=== PATIENT | male | born 1975 | race Caucasian/White ===

== ENCOUNTER 2022-11-09 17:29 | Observation (INO) | payer BC, SELFPAY ==
[2022-11-09] VITALS (7 sets, daily range): BP systolic 148–167; BP diastolic 90–136; PULSE 99–147; RESP 18–20; TEMP 36.5; O2SAT 99–100
--- NOTE | ~2022-11-09 | XR_ITS ---
EXAMINATION: XR chest 2V Exam Date/Time: 11/09/2022 18:10 AUTO APPRAISER HISTORY: ELEVATED HEART RATE Comparison: None available. RESULT: Lines, tubes, and devices: None. Lungs and pleura: Clear. Cardiomediastinal silhouette: Unremarkable. Other: No acute osseous or upper abdominal finding. IMPRESSION: No acute cardiopulmonary process. Reviewed, dictated and finalized at location K. APPRAISER
--- NOTE | 2022-11-09 17:34 | ECG_ITS ---
Measurements Intervals [place] Rate: 127 P: [place]: 0 QRS: 42 QRSD: 85 T: 59 QT: 275 QTc: 400 Interpretive Statements ATRIAL FLUTTER/TACHYCARDIA WITH RAPID VENTRICULAR RESPONSE MARKED ST DEPRESSION, CONSIDER SUBENDOCARDIAL INJURY [0.2+ mV ST DEPRESSION] NO PREVIOUS ECG AVAILABLE FOR COMPARISON Electronically Signed On 11-10-2022 14:43:57 CHIEF EMBALMER by Bro Johns M.D.
[2022-11-09 18:22] LABS: Basophils Absolute Auto 0.1 K/mm3 (0.0-0.1); Basophils Percent Auto 0.5 % (0.2-1.2); Eosinophils Percent Auto 0.2 % (0-4.4); Hematocrit 45.7 % (42.0-52.0); Hemoglobin 15.2 g/dL (14.0-18.0); Immature Granulocyte Absolute 0.03 K/mm3 (0.00-0.031); Immature Granulocyte Percent A 0.3 % (0-0.5); Lymphocytes Absolute Auto 0.95 K/mm3 (0.9-3.2); Lymphocytes Percent Auto 10.3 % (18.3-44.2); Mean Corpuscular HGB Conc 33.3 g/dl (32-36); Mean Corpuscular Hemoglobin 33.5 pg (26-34); Mean Corpuscular Volume 100.7 fl (80-100); Mean Platelet Volume 9.9 fl (7.4-10.4); Monocytes Absolute Auto 0.7 K/mm3 (0.1-0.6); Monocytes Percent Auto 7.6 % (2.6-8.5); Neutrophils Absolute Auto 7.4 K/mm3 (1.3-6.7); Neutrophils Percent Auto 81.1 % (45.5-73.1); Platelet Count Result 247 k/mm3 (150-375); Red Blood Count 4.54 M/mm3 (4.6-6.20); Red Cell Distribution Width 12.7 % (11.5-14.5); White Blood Count 9.2 K/mm3 (4.5-10.0)
[2022-11-09 18:25] LABS: Alanine Aminotransferase 89 U/L (6-50); Albumin Level 5.2 g/dL (3.5-5.1); Alkaline Phosphatase 95 U/L (38-126); Anion Gap 16 mmol/L (8-16); Aspartate Amino Transferase 126 U/L (17-59); Blood Urea Nitrogen 11 mg/dL (9-20); Carbon Dioxide 25 mmol/L (22-30); Chloride 93 mmol/L (98-107); Estimated Glomerular Filt Rate > 60; Glucose 103 mg/dL (65-110); Lipase 151 U/L (23-300); Potassium 4.8 mmol/L (3.4-5.0); Sodium 134 mmol/L (137-145)
[2022-11-09 18:26] LABS: Partial Thromboplastin Time 27.6 SECONDS (22.3-36.8)
[2022-11-09 18:37] LABS: Troponin I < 0.012 ng/mL (0.000-0.034)
[2022-11-09] MEDS: SODIUM CHLORIDE 0.9% IV 1,000 ML 999 ML IV CONT (18:55)
--- NOTE | 2022-11-09 19:03 | ED.ARRPALP ---
HPI - Arrhythmia/Palpitations General Chief Complaint: Arrhythmia/Palpitations Stated Complaint: ELEVATED HEART RATE Time Seen by Provider: 11/09/22 18:41 History of Present Illness HPI narrative: 47-year-old male history of depression presents to the emergency room for evaluation of fast, irregular heart rate that started around 1530 this afternoon. Associated with palpitations, dizziness and nausea. States that he drank significantly last night. Has a history of similar symptoms 8 years ago, states that this then resolved after roommates of breath. Does have a history of snoring, however is lost weight and no longer uses a CPAP machine. Related Data Allergies Allergy/AdvReac Type Severity Reaction Status Date / Time diclofenac AdvReac Rash Verified 11/09/22 19:05 Review of Systems Review of Systems: CONSTITUTIONAL: Denies fever, chills, or sweats. EYES: Denies visual changes, redness, or discharge. ENT: Denies rhinorrhea, congestion, sore throat, or otalgia. CARDIOVASCULAR: Reports palpitations, tachycardia RESPIRATORY: Denies cough or dyspnea. GASTROINTESTINAL: Denies abdominal pain, nausea, vomiting, or diarrhea. GENITOURINARY: Denies dysuria or hematuria. SKIN: Denies rash or itching. MUSCULOSKELETAL: Denies back pain, joint pain, or myalgia. NEUROLOGIC: Denies headache, numbness, dizziness, or weakness. PSYCHIATRIC: Denies anxiety or depression. Exam Narrative: GENERAL: Well-appearing, well-nourished, no physical limitations, and in no acute distress. HEAD: Normocephalic, atraumatic. EYES: Conjunctivae normal, PERRLA and EOMI. CHEST: Clear to auscultation. No respiratory distress. No wheezes rales or rhonchi. HEART: Irregular rate irregular rhythm. No murmur heard. Normal peripheral pulses. ABDOMEN: Soft, nontender, nondistended, normal active bowel sounds. EXTREMITIES: Normal range of motion. No edema. No clubbing or cyanosis SKIN: Warm, dry, no rash. No noted wounds NEURO: No focal deficits. Alert and oriented x3. MAEW. CN's II-XI intact bilaterally, normal gait PSYCH: Cooperative. Normal mood and affect. Course Vital Signs Vital signs: Vital Signs Temperature 36.5 C 11/09/22 18:08 Pulse Rate 99 11/09/22 18:08 Respiratory Rate 20 11/09/22 18:08 Blood Pressure 150/94 H 11/09/22 18:08 Pulse Oximetry 99 11/09/22 18:08 Temperature 36.5 C 11/09/22 18:24 Pulse Rate 142 H 11/09/22 20:02 Respiratory Rate 20 11/09/22 18:24 Blood Pressure 159/107 H 11/09/22 20:02 Pulse Oximetry 99 11/09/22 18:24 Oxygen Delivery Room Air 11/09/22 18:24 MDM - Arrhythmia/Palpitations Lab Data 11/09/22 17:59 11/09/22 17:59 Labs: Lab Results 11/09/22 11/09/22 11/09/22 Range/Units 17:59 17:59 17:59 WBC 9.2 (4.5-10.0) K/mm3 RBC 4.54 L (4.6-6.20) M/mm3 Hgb 15.2 (14.0-18.0) g/dL Hct 45.7 (42.0-52.0) % MCV 100.7 H (80-100) fl MCH 33.5 (26-34) pg MCHC 33.3 (32-36) g/dl RDW 12.7 (11.5-14.5) % Plt Count 247 (150-375) k/mm3 MPV 9.9 (7.4-10.4) fl Immature Gran % (Auto) 0.3 (0-0.5) % Neut % (Auto) 81.1 H (45.5-73.1) % Lymph % (Auto) 10.3 L (18.3-44.2) % [place] % (Auto) 7.6 (2.6-8.5) % Eos % (Auto) 0.2 (0-4.4) % Baso % (Auto) 0.5 (0.2-1.2) % Lymph # (Auto) 0.95 (0.9-3.2) K/mm3 [place] # (Auto) 0.7 H (0.1-0.6) K/mm3 Eos # (Auto) 0.0 (0-0.3) K/mm3 Baso # (Auto) 0.1 (0.0-0.1) K/mm3 Abs Immat Gran (auto) 0.03 (0.00-0.031) K/mm3 Absolute Neuts (auto) 7.4 H (1.3-6.7) K/mm3 Absolute Nucleated RBC 0.0 (0.0-0.012) K/mm3 Nucleated RBC % 0.0 (0.0-0.2) % PT 13.0 (11.1-14.7) Seconds INR 1.0 APTT 27.6 (22.3-36.8) SECONDS Sodium 134 L (137-145) mmol/L Potassium 4.8 (3.4-5.0) mmol/L Chloride 93 L (98-107) mmol/L Carbon Dioxide 25 (22-30) mmol/L Anion Gap 16 (8-16) mmol/L BUN 11 (9-20) mg/dL Creatinine 0.60 L (0.7-1.3
[2022-11-09] MEDS: dilTIAZem HCl INJ 25 MG/5 ML VIAL 10 MG IV PUSH (19:04)
[2022-11-09] MEDS: ONDANSETRON INJ 4 MG/2 ML VIAL IV PUSH (19:13)
--- NOTE | 2022-11-09 19:16 | ECG_ITS ---
Measurements Intervals [place] Rate: 141 P: [place]: 0 QRS: 28 QRSD: 78 T: 3 QT: 263 QTc: 403 Interpretive Statements ATRIAL FLUTTER/TACHYCARDIA WITH RAPID VENTRICULAR RESPONSE ST DEPRESSION, CONSIDER SUBENDOCARDIAL INJURY [0.1+ mV ST DEPRESSION] COMPARED TO ECG 11/09/2022 17:54:15 NO SIGNIFICANT CHANGES Electronically Signed On 11-10-2022 14:45:35 STORE TEAM MEMBER by Bro Johns M.D.
[2022-11-09] MEDS: dilTIAZem 100 MG/100 ML 100 MG/100 ML BAG IV CONT (19:39)
--- NOTE | 2022-11-09 20:00 | PM.IMHP ---
H&P: HPI History of Present Illness Date/Time: 11/09/22 20:00 Chief Complaint: Chest discomfort Narrative: This is a 47-year-old male with past medical history significant for alcohol dependence patient drinks 4-5 drinks a day has been drinking more than usual for the holidays started having fluttery sensation of his chest with some lightheadedness no chest pain some shortness of breath with exertion no ankle swelling no leg swelling, no syncope, no near syncope. Patient noted on his Apple watch that he had tachycardia with heart rate into the 150's. Preliminary workup in the emergency room was significant for a chest x-ray was reported as: RESULT: Lines, tubes, and devices:? None. Lungs and pleura:? Clear. Cardiomediastinal silhouette:? Unremarkable. Other:? No acute osseous or upper abdominal finding. ? IMPRESSION: No acute cardiopulmonary process. ECG was reported as: ATRIAL FLUTTER/TACHYCARDIA WITH RAPID VENTRICULAR RESPONSE ST DEPRESSION, CONSIDER SUBENDOCARDIAL INJURY [0.1+ mV ST DEPRESSION] COMPARED TO ECG 11/09/2022 17:54:15 NO SIGNIFICANT CHANGES Review of Systems Review of Systems: For palpitations, fluttery feeling in his chest, shortness of breath, lightheadedness, nausea. Constitutional: Constitutional: Denies chills, Denies fever(s), Denies malaise and Denies weakness Eyes: Eyes: Denies change in vision ENT: Denies dysphagia, Denies vertigo and Denies dizziness Cardiovascular: Cardiovascular: Denies chest pain, Denies pedal edema, Reports irregular heart rhythm, Denies leg edema, Reports lightheadedness, Denies radiating jaw, neck or arm pain, Reports palpitations, Reports dyspnea and Reports dyspnea on exertion Respiratory: Respiratory: Denies chest congestion, Denies cough, Denies pain on inspiration and Denies wheezing Gastrointestinal: Gastrointestinal: Denies abdominal pain, Denies dyspepsia, Denies heartburn, Denies nausea and Denies vomiting Genitourinary: Genitourinary: Denies dysuria Musculoskeletal: Musculoskeletal: Denies back pain, Denies myalgias, Denies joint swelling, Denies limited range of motion, Denies muscle weakness and Denies neck pain Integumentary/Breasts: Skin/Breast: Denies rash Neurologic: Denies vertigo, Denies dizziness, Denies syncope, Denies focal weakness, Denies Sensory deficit (Neuro), Denies tingling and Reports tremor(s) Psychiatric: Psychiatric: Reports no additional psychiatric complaints and Reports as per HPI Endocrine: Endocrine: Denies cold intolerance, Denies flushing, Denies heat intolerance, Denies polyphagia, Denies polydipsia and Denies palpitations Hematologic/Lymphatic: Hematologic/Lymphatic: Reports no additional hematologic/lymphatic complaints and Reports as per HPI Allergic/Immunologic: Allergic/Immunologic: Reports no additional allergic/immunologic complaints and Reports as per HPI PMF Family History Family History (Updated 11/10/22 @ 01:26 by Crhisti Coleman, VIRGILIO) Father Cerebrovascular accident Mother Thyroid cancer Social History Social History Smoking status: Never smoker Alcohol intake: current Drinks per week: 21 Substance use type: does not use Lack of Transportation: No Lack of Food: Never True Current Housing: I Have Housing Concerned About Future Housing: No Difficulty Paying Gas/Electric Bills: No Difficulty Paying for Meds: No Currently Unemployed: No Education: Master's Degree or Higher Difficulty w/ Childcare or Family Care: No Spiritual care concerns: No Meds Home Medications and Allergies Home Medications Medication Instructions Recorded Confirmed Type sertraline 50 mg tablet 50 mg PO DAILY 11/10/22 11/10/22 History Allergies Allergy/AdvReac Type Severity Reaction Status Date / Time diclofenac AdvReac Rash Verified 11/09/22 19:05 Vital Signs Vital Signs - 24 hr 11/09/22 18:08 11/09/22 18:24 11/09/22
[2022-11-09 20:30] LABS: Influenza A QL RT-PCR Negative (Negative); Influenza B QL RT-PCR Negative (Negative); RSV RNA, RT-PCR Negative (Negative); SARS-CoV-2 RNA PCR Negative
[2022-11-09] MEDS: ENOXAPARIN 80 MG/0.8 ML SYRINGE 70 MG SUB-Q (20:30)
[2022-11-09] MEDS: LORazepam INJ (*CRX) 2 MG/ML VIAL 1 MG IV PUSH (20:30)
[2022-11-09 21:17] LABS: Troponin I < 0.012 ng/mL (0.000-0.034)
[2022-11-09] MEDS: dilTIAZem HCl INJ 25 MG/5 ML VIAL 20 MG IV PUSH (21:28)
[2022-11-09] MEDS: chlordiazePOXIDE (*CRX) 25 MG CAPSULE 50 MG PO (23:17)
[2022-11-09] MEDS: dilTIAZem 100 MG/100 ML 100 MG/100 ML BAG 15 MG IV CONT (23:18)
[2022-11-10] VITALS (16 sets, daily range): BP systolic 115–135; BP diastolic 74–97; PULSE 52–145; RESP 11–29; TEMP 36.5–37; O2SAT 97–99
--- NOTE | 2022-11-10 | ECHO_ITS ---
Patient Info Name: Sandip Scherer Age: 47 years : 1975 Gender: Male Ht: 74 in Wt: 156 lbs BSA: 1.91 m2 HR: 77 bpm BP: 117 / 77 mmHg Heart Rhythm: Sinus Rhythm Technical Quality: Good Exam Date: 11/10/2022 11:03 AM Exam Location: [facility] Patient Status: Inpatient Admit Date: 11/09/2022 Staff Ordering Physician: Wilma Hughes MD Paper Twister Tender: Aspen Dominguez RCS Attending Provider: Foster Gonzales MD Referring Physician: Saul MOORE; Exam Type: CA echo doppler color flow Study Info Indications - afib Complete two-dimensional, color flow and Doppler transthoracic echocardiogram is performed. Summary 1. Complete two-dimensional, color flow and Doppler transthoracic echocardiogram is performed. 2. Left ventricular chamber dimension is normal. 3. Left ventricular systolic function is normal, estimated at 65-70%. 4. There is no increased left ventricular wall thickness. 5. The left ventricular diastolic function is normal. 6. Right atrial chamber dimension is mildly enlarged. 7. There is no aortic valve stenosis. 8. There is trace mitral valve regurgitation. 9. There is trace tricuspid valve regurgitation. 10. No pulmonary hypertension, estimated pulmonary arterial systolic pressure is 27 mmHg. Left Ventricle Left ventricular chamber dimension is normal. Left ventricular systolic function is normal, estimated at 65-70%. There is no increased left ventricular wall thickness. The left ventricular diastolic function is normal. Right Ventricle Right ventricular chamber dimension is normal. Right ventricular systolic function is normal. Left Atria Left atrial chamber dimension is normal. Right Atria Right atrial chamber dimension is mildly enlarged. Aortic Valve The aortic valve is trileaflet. There is no aortic valve stenosis. There is no aortic valve regurgitation. Pulmonic Valve The pulmonic valve is normal. There is trace pulmonic regurgitation. Mitral Valve The mitral valve has normal leaflets. There is trace mitral valve regurgitation. Tricuspid Valve The tricuspid valve leaflets are normal. There is trace tricuspid valve regurgitation. No pulmonary hypertension, estimated pulmonary arterial systolic pressure is 27 mmHg. Pericardium/Pleural The pericardium appears normal. There is no pericardial effusion. Inferior Vena Cava Normal inferior vena cava with >50% collapse upon inspiration consistent with normal right atrial pressure, 5 mmHg. Aorta The aortic root size at the sinus of Valsalva is normal. Left Ventricular Outflow Tract Name Value Normal LVOT 2D LVOT Diameter 2.0 cm LVOT Doppler LVOT Peak Gradient 7 mmHg LVOT Mean Gradient 4 mmHg LVOT VTI 25 cm LVOT VTI/AV VTI Ratio 0.9 LVOT Stroke Volume 83 ml LVOT CO 17.9 l/min LVOT CI 9.4 l/min/m2 Pulmonic Valve
[2022-11-10 00:06] LABS: Troponin I < 0.012 ng/mL (0.000-0.034)
--- NOTE | 2022-11-10 00:59 | ADMGEN ---
This patient, Sandip Scherer, was admitted to Intensive Care Unit-11 at 2326. Patient/family oriented to hospital policies and general routines including ID bracelet, bed and alarms, visiting hours, pain management, procedures, bathroom and other care routines, personal items, smoking policy, room service/diet, and visiting hours. Information on how to activate the Rapid Response Team has been discussed. Patient/Family are encouraged to report perceived risks to care and to ask questions if they do not understand what they are told or what they should do.
[2022-11-10] MEDS: AMIODARONE 150 MG/D5W 100 ML 150 MG/100 ML BAG 600 MG IV CONT (01:45)
[2022-11-10] MEDS: AMIODARONE 360 MG/D5W 200 ML 360 MG/200 ML BAG 33.33 MG IV CONT (01:46)
[2022-11-10 04:39] LABS: Basophils Percent Auto 0.5 % (0.2-1.2); Eosinophils Absolute Auto 0.1 K/mm3 (0-0.3); Hematocrit 42.4 % (42.0-52.0); Hemoglobin 14.6 g/dL (14.0-18.0); Immature Granulocyte Absolute 0.02 K/mm3 (0.00-0.031); Immature Granulocyte Percent A 0.3 % (0-0.5); Lymphocytes Percent Auto 24.6 % (18.3-44.2); Mean Corpuscular HGB Conc 34.4 g/dl (32-36); Mean Corpuscular Hemoglobin 33.9 pg (26-34); Mean Corpuscular Volume 98.4 fl (80-100); Mean Platelet Volume 9.5 fl (7.4-10.4); Monocytes Absolute Auto 0.9 K/mm3 (0.1-0.6); Monocytes Percent Auto 12.8 % (2.6-8.5); Neutrophils Absolute Auto 4.5 K/mm3 (1.3-6.7); Neutrophils Percent Auto 60.8 % (45.5-73.1); Platelet Count Result 222 k/mm3 (150-375); Red Blood Count 4.31 M/mm3 (4.6-6.20); Red Cell Distribution Width 12.2 % (11.5-14.5); White Blood Count 7.3 K/mm3 (4.5-10.0)
[2022-11-10 04:49] LABS: INR 1.2; Prothrombin Time 14.2 Seconds (11.1-14.7)
[2022-11-10 05:19] LABS: Anion Gap 11 mmol/L (8-16); Blood Urea Nitrogen 8 mg/dL (9-20); Calcium 8.4 mg/dL (8.4-10.2); Carbon Dioxide 28 mmol/L (22-30); Chloride 95 mmol/L (98-107); Estimated CRCL calculation 128 ml/min; Estimated Glomerular Filt Rate > 60; Glucose 90 mg/dL (65-110); Potassium 3.6 mmol/L (3.4-5.0); Sodium 134 mmol/L (137-145)
[2022-11-10] MEDS: AMIODARONE 360 MG/D5W 200 ML 360 MG/200 ML BAG 16.67 MG IV CONT (06:55)
[2022-11-10] MEDS: chlordiazePOXIDE (*CRX) 25 MG CAPSULE 50 MG PO ×2 (06:55→17:31)
--- NOTE | 2022-11-10 08:52 | ECG_ITS ---
Measurements Intervals [place] Rate: 73 P: 13 RI: 130 QRS: 33 QRSD: 88 T: 35 QT: 378 QTc: 418 Interpretive Statements SINUS RHYTHM COMPARED TO ECG 11/09/2022 19:24:21 SINUS RHYTHM NOW PRESENT Electronically Signed On 11-10-2022 14:53:37 AUTOMATED EQUIPMENT ENGINEER TECHNICIAN by Bro Johns M.D.
[2022-11-10] MEDS: PANTOPRAZOLE SODIUM IV 40 MG VIAL IV PUSH (09:16)
[2022-11-10] MEDS: POTASSIUM CHLORIDE 20 MEQ TABLET 40 MEQ PO (09:16)
[2022-11-10] MEDS: THIAMINE HCL 200 MG/2 ML VIAL 100 MG IV PUSH (09:16)
[2022-11-10] MEDS: FOLIC ACID 1 MG TABLET PO (09:16)
[2022-11-10] MEDS: SERTRALINE HCL 50 MG TABLET PO (09:16)
[2022-11-10] MEDS: ENOXAPARIN 80 MG/0.8 ML SYRINGE 70 MG SUB-Q (09:36)
--- NOTE | 2022-11-10 10:31 | PM.CNCAR ---
Assessment and Plan Assessment and plan (1) Atrial fibrillation and flutter: Code(s): I48.91 - Unspecified atrial fibrillation; I48.92 - Unspecified atrial flutter Status: Acute (2) Alcohol dependence: Code(s): F10.20 - Alcohol dependence, uncomplicated Status: Acute Plan Since patient is now in sinus rhythm, will stop Amiodarone. Start Metoprolol. Will check TSH. Will obtain echo to rule out underlying structural heart disease. Recommended outpatient sleep study to evaluate for DONALD. Discussed the correlation between alcohol use and atrial fibrillation; recommended alcohol cessation. Advised patient to establish care with a long term care pharmacist back home in [place]. History of Present Illness History of Present Illness Consult date/time: 11/10/22 10:31 Requesting physician: Matthew Camarena APRN Consult reason: atrial fibrillation Reason For Visit: New Onset of A Fib/ A Flutter Narrative: We are consulted for atrial flutter/fibrillation. This is a 47-year-old male with a history of depression and alcohol use who presented with palpitations and high heart rate according to his Apple Watch. Patient lives in [place] but is in town visiting for the holidays. Patient is without chest pain, shortness of breath, lightheadedness/dizziness, syncope. EKG on admission showed atrial flutter. Telemetry appears to have some atrial fibrillation as well. Patient was started on IV Amiodarone drip. He converted to sinus rhythm this morning. Review of Systems Review of Systems: 12-point ROS obtained. Negative, unless stated in HPI. [facility] Family History Family History Father Cerebrovascular accident Mother Thyroid cancer Social History Social History Smoking status: Never smoker Alcohol intake: current Drinks per week: 21 Substance use type: does not use Lack of Transportation: No Lack of Food: Never True Current Housing: I Have Housing Concerned About Future Housing: No Difficulty Paying Gas/Electric Bills: No Difficulty Paying for Meds: No Currently Unemployed: No Education: Master's Degree or Higher Difficulty w/ Childcare or Family Care: No Spiritual care concerns: No Meds Home Medications and Allergies Home Medications Medication Instructions Recorded Confirmed Type sertraline 50 mg tablet 50 mg PO DAILY 11/10/22 11/10/22 History Allergies Allergy/AdvReac Type Severity Reaction Status Date / Time diclofenac AdvReac Rash Verified 11/09/22 19:05 Vital Signs Vital Signs - 24 hr 11/09/22 18:08 11/09/22 18:24 11/09/22 19:39 Temperature 36.5 C 36.5 C Pulse Rate 99 144 H 147 H Pulse Rate [Bilateral Radial] Respiratory Rate 20 20 Blood Pressure 150/94 H 150/94 H 162/105 H Pulse Oximetry 99 99 Oxygen Delivery Room Air 11/09/22 20:02 11/09/22 20:22 11/09/22 21:22 Temperature Pulse Rate 142 H 140 H 146 H Pulse Rate [Bilateral Radial] Respiratory Rate 18 Blood Pressure 159/107 H 167/106 H 150/136 H Pulse Oximetry 100 Oxygen Delivery 11/09/22 23:18 11/10/22 01:45 11/10/22 01:46 Temperature Pulse Rate 147 H 145 H 145 H Pulse Rate [Bilateral Radial] Respiratory Rate Blood Pressure 148/90 H 124/88 124/88 Pulse Oximetry Oxygen Delivery 11/10/22 00:00 11/10/22 00:00 11/10/22 00:00 Temperature 37.0 C Pulse Rate 145 H 145 H 145 H Pulse Rate [Bilateral Radial] Respiratory Rate 21 H Blood Pressure 135/97 H Pulse Oximetry 97 Oxygen Delivery Room Air 11/10/22 02:00 11/10/22 04:00 11/10/22 04:00 Temperature 36.9 C Pulse Rate 140 H 104 H 104 H Pulse Rate [Bilateral Radial] Respiratory Rate 20 Blood Pressure 119/74 Pulse Oximetry 97 97 Oxygen Delivery Room Air 11/10/22 04:00 11/10/22 04:00 11/10/22 05:25 Temperature Pulse Rate 104 H 72 Pulse Rate [Bilateral Radial] 104 H
[2022-11-10] MEDS: METOPROLOL TARTRATE 25 MG TABLET PO ×2 (11:15→21:21)
[2022-11-10 11:37] LABS: Glucose Point of Care 91 mg/dl (65-105)
--- NOTE | 2022-11-10 13:20 | PM.IMPN ---
Progress Note: A&P Assessment and Plan (1) Atrial fibrillation and flutter: Code(s): I48.91 - Unspecified atrial fibrillation; I48.92 - Unspecified atrial flutter Status: Acute Assessment and Plan: Patient presented with chest pain, shortness of breath, lightheadedness, palpitations, was found to have AFib RVR in the ER. Initially started on Cardizem and switched to amiodarone infusion. -patient converted to sinus rhythm, -Discontinue Amiodarone and start metoprolol p.o. -TSH levels within normal limits -appreciate cardiology evaluation and recommendation -echo has been ordered and pending -continue therapeutic Lovenox (2) Alcohol dependence: Code(s): F10.20 - Alcohol dependence, uncomplicated Status: Acute Assessment and Plan: Patient has significant alcohol dependence, to watch for alcohol withdrawal -continue folic acid, thiamine -patient on Librium -continue CIWA protocol -counseled for alcohol cessation (3) Depression: Code(s): F32.A - Depression, unspecified Status: Acute Assessment and Plan: Continue sertraline Plan DVT prophylaxis: Therapeutic Lovenox Stress ulcer prophylaxis: Protonix Nutrition: Heart healthy diet Code Status: Full code Due to a high probability of clinically significant, life threatening deterioration, the patient required my highest level of preparedness to intervene emergently and I personally spent this critical care time directly and personally managing the patient. This critical care time included obtaining a history; examining the patient; pulse oximetry; ordering and review of studies; arranging urgent treatment with development of a management plan; evaluation of patient's response to treatment; frequent reassessment; and discussions with other providers. It was exclusive of separately billable procedures and treating other patients and teaching time. Please see Assessment and Plan section and the rest of the note for further information on patient assessment and treatment This dictation may have been done utilizing a voice recognition system. Attempts have been made to correct errors. However, there may be uncorrected grammatical, spelling, and recognitions errors present. Subjective Date/time seen: 11/10/22 13:20 Interval history: Chief complaint: Chest discomfort, lightheadedness, shortness of breath, palpitations, alcohol abuse. In the ER he was found to have AFib RVR, chest x-ray was negative 11/10/2022: Patient seen and examined for hospitalist group Mike patient with a flat affect, denies any chest pain at this time, on amiodarone infusion, rate controlled, converted to sinus rhythm. Denies any tobacco use or illicit drug abuse, he does drink alcohol, states 4-5 drinks on a regular basis and more than usual for the holidays. He is from [place] and was visiting the area for holidays. Patient is hemodynamically stable, adequate O2 sats on room air Review of Systems Review of Systems: All systems reviewed & are unremarkable except as noted in HPI and below Exam Narrative: General: Pleasant gentleman in no acute distress HEENT:? Pupils are equal and reactive, sclera is clear, moist oral mucosa Neck:? Supple Respiratory:? Date to auscultation bilaterally, no wheezing, adequate air entry Cardiac:? S1-S2 is normal, regular rate and rhythm Abdomen:? Soft, nontender, nondistended, normoactive bowel sounds Extremities:? No edema, palpable pedal pulses Neuro:? Patient is awake, alert, oriented, nonfocal, answers to questions appropriately Skin:? Warm and dry Psych:? Flat affect Objective Data Vital Signs Vital Signs: Vital Signs - 24 hr 11/09/22 18:08 11/09/22 18:24 11/09/22 19:39 Temperature 97.7 F 97.7 F Pulse Rate 99 144 H 147 H Pulse Rate [Bilateral Radial] Respiratory Rate 20 20 Blood Pressure 150/94 H 150/94 H 162/105 H Pulse Oximetry 99 99 Oxygen Delivery Room Air 11/09/22 20:02
[2022-11-10 18:56] LABS: Glucose Point of Care 116 mg/dl (65-105)
[2022-11-11] VITALS: BP 118/85; PULSE 49; RESP 13; O2SAT 98
[2022-11-11] MEDS: chlordiazePOXIDE (*CRX) 25 MG CAPSULE 50 MG PO ×2 (00:19→06:58)
[2022-11-11 04:00] VITALS: BP 114/81; PULSE 46; RESP 18; TEMP 36.6; O2SAT 99
[2022-11-11 07:53] VITALS: TEMP 36.2
[2022-11-11 08:00] VITALS: BP 115/90; PULSE 61; PULSE 73; RESP 17
[2022-11-11 08:36] VITALS: PULSE 75
[2022-11-11] MEDS: METOPROLOL TARTRATE 25 MG TABLET PO (08:36)
[2022-11-11] MEDS: SERTRALINE HCL 50 MG TABLET PO (08:37)
[2022-11-11] MEDS: FOLIC ACID 1 MG TABLET PO (08:37)
[2022-11-11] MEDS: THIAMINE HCL 200 MG/2 ML VIAL 100 MG IV PUSH (08:37)
[2022-11-11] MEDS: PANTOPRAZOLE SODIUM IV 40 MG VIAL IV PUSH (08:37)
--- NOTE | 2022-11-11 09:57 | PM.PNCARD ---
Progress Note: A&P Assessment and Plan (1) Atrial fibrillation and flutter: Code(s): I48.91 - Unspecified atrial fibrillation; I48.92 - Unspecified atrial flutter Status: Acute (2) Alcohol dependence: Code(s): F10.20 - Alcohol dependence, uncomplicated Status: Acute Plan Patient remains in sinus rhythm. Will discharge on Toprol XL 25mg daily. [id number] 0. Anticoagulation not indicated. TSH WNL Echo showed normal LVSF, no significant valvular abnormalities. Mild HERMES. Recommended outpatient sleep study to evaluate for DONALD. Recommend alcohol cessation Advised patient to establish care with a data analyst back home in [place]. OK for discharge from a cardiac standpoint. Subjective Date/time seen: 11/11/22 09:57 Cardiology follow up for atrial fibrillation Remains in sinus rhythm this morning. He has no complaints of any kind. Eager for discharge. He and his had many questions that were all answered to their satisfaction. Review of Systems Review of Systems: All systems reviewed & are unremarkable except as noted in HPI and below Exam Const: General: comfortable and no acute distress HENMT: Mouth: Yes moist mucous membranes Eyes: General: appearance normal, both eyes and all related structures Sclera: sclerae normal Neck: Neck: supple Resp: Effort & Inspection: normal respiratory effort Auscultation: clear to auscultation bilaterally Cardio: Rate: regular rate Rhythm: regular rhythm Heart sounds: no murmurs Skin: General skin exam: normal color Neuro: Speech: normal speech Extrem: General: normal to inspection Psych: Mental Status: mental status grossly normal Affect: normal affect Objective Data Vital Signs Vital Signs: Vital Signs - 24 hr 11/10/22 11:15 11/10/22 12:00 11/10/22 10:00 Temperature 37.0 C Pulse Rate 71 60 72 Respiratory Rate 11 L Blood Pressure 130/88 Pulse Oximetry 99 Oxygen Delivery 11/10/22 12:00 11/10/22 14:00 11/10/22 16:00 Temperature 36.5 C Pulse Rate 62 59 L 54 L Respiratory Rate 14 Blood Pressure 118/86 Pulse Oximetry Oxygen Delivery 11/10/22 16:00 11/10/22 20:00 11/10/22 20:00 Temperature Pulse Rate 59 L 52 L 52 L Respiratory Rate Blood Pressure Pulse Oximetry Oxygen Delivery Room Air 11/10/22 20:00 11/10/22 21:21 11/11/22 00:00 Temperature 36.5 C Pulse Rate 52 L 60 49 L Respiratory Rate 15 Blood Pressure 115/86 Pulse Oximetry 98 Oxygen Delivery 11/11/22 00:00 11/11/22 00:00 11/11/22 04:00 Temperature Pulse Rate 49 L 46 L Respiratory Rate 13 Blood Pressure 118/85 118/85 Pulse Oximetry 98 Oxygen Delivery 11/11/22 04:00 11/11/22 07:53 11/11/22 08:36 Temperature 36.6 C 36.2 C L Pulse Rate 46 L 75 Respiratory Rate 18 Blood Pressure 114/81 Pulse Oximetry 99 Oxygen Delivery 11/11/22 08:00 11/11/22 08:00 11/11/22 08:00 Temperature Pulse Rate 73 61 Respiratory Rate 17 Blood Pressure 115/90 Pulse Oximetry Oxygen Delivery Room Air Intake/Output Intake/Output: Intake & Output 11/08/22 11/09/22 11/10/22 11/11/22 23:59 23:59 23:59 23:59 Intake Total 1100 1750 440 Output Total 1100 500 Balance 1100 650 -60 Meds/Results Medications: Active Medications Generic Name Dose Route Start Last Admin Trade Name Freq PRN Reason Stop Dose Admin Chlordiazepoxide HCl 50 mg 11/10/22 00:00 11/11/22 06:58 Chlordiazepoxide (*Crx) 25 Mg Capsule PO 50 mg Q6HR ABDOULAYE Administration Folic Acid 1 mg 11/10/22 09:00 11/11/22 08:37 Folic Acid 1 Mg Tablet PO 1 mg DAILY ABDOULAYE Administration Lorazepam 2 mg 11/10/22 02:00 Lorazepam Inj (*Crx) 2 Mg/Ml Vial IV PUSH Q4H PRN Withdrawal Metoprolol Tartrate 25 mg 11/10/22 10:35 11/11/22 08:36 Metoprolol Tartrate 25 Mg Tablet PO 25 mg Q12HR ABDOULAYE Administration Ondansetron HCl 4 mg 11/09/22 20:09 Ondansetron Inj
--- NOTE | 2022-11-11 11:32 | PM.DS ---
DS: Admitting Diagnosis Discharge Date 11/11/2022 Admitting Diagnosis chest discomfort DS: Discharge Diagnosis Discharge Diagnosis (1) Atrial fibrillation and flutter: Code(s): I48.91 - Unspecified atrial fibrillation; I48.92 - Unspecified atrial flutter Status: Acute Assessment and Plan: Admit to telemetry Patient received diltiazem emergency room in however heart rate did sustain in the 150's Patient started on amiodarone Patient started on therapeutic Lovenox Echocardiogram in the morning NPO Cardiology consult Supportive care (2) Alcohol dependence: Code(s): F10.20 - Alcohol dependence, uncomplicated Status: Acute Assessment and Plan: CIWA protocol as needed (3) Alcohol withdrawal: Code(s): F10.939 - Alcohol use, unspecified with withdrawal, unspecified Status: Acute Assessment and Plan: CIWA protocol in progress DS: Summary Hospital Course Reason for hospitalization: Chief Complaint: Chest discomfort Narrative: This is a 47-year-old male with past medical history significant for alcohol dependence patient drinks 4-5 drinks a day has been drinking more than usual for the holidays started having fluttery sensation of his chest with some lightheadedness no chest pain some shortness of breath with exertion no ankle swelling no leg swelling, no syncope, no near syncope.? Patient noted on his Apple watch that he had tachycardia with heart rate into the 150's.? Preliminary workup in the emergency room was significant for a chest x-ray was reported as: Hospital Course: patient with history of alcohol abuse had been drinking more than usual for holiday and presented with a tachycardia upon arrival patient was found to be in atrial fibrillation with a flutter, patient was placed on amiodarone drip and converted to sinus rhythm, patient had a cardiac echo showed normal ejection fraction 65% and no abnormal wall movement, patient seen by stonemason supervisor at started the patient on Toprol xl 25 mg q.day and patient does not need anticoagulation as [id number] 0., patient instructed to stop drinking alcohol and to follow up with Cardiology, clinically stable discharge the patient today. Time Spent with Patient Time attestation: Total time spent providing and/or coordinating discharge services: DS: Data Data Completed and Pending Labs on day of discharge: Labs from last 24 hours 11/10/22 11/10/22 18:19 11:34 POC Capillary Glucose 116 H 91 Discharge Plan Discharge Attending physician on discharge: Santhosh Akins Consulting providers: Bro Johns ; Patrick Richardson ; Connor Martinez ; Sree Gerard ; Floresita Murphy Discharging Clinician: Santhosh Akins Patient Disposition: Home, Self-Care Activity: as tolerated Diet: heart healthy Discharge Instructions: Patient is instructed to avoid alcohol until seen by primary care provider. Patient to follow up with primary care provider as soon as possible, and it's recommend to discuss setting up outpatient sleep study for DONALD. Patient is instructed if any symptoms redevelop to go to the nearest ER. Patient is to establish [facility] once he returns home. Patient Instructions: Metoprolol (By mouth), Amiodarone (By injection), A-fib (Atrial Fibrillation) (DC) Stand Alone Forms: General Discharge Information Follow-up/Referrals: PHYSICIAN NOT ON STAFF,NONSTAFF [Primary Care Provider] - Discharge Medications: New metoprolol succinate [Toprol XL] 25 mg tablet extended release 24 hr 25 mg PO DAILY Qty: 30 0RF folic acid 1 mg Tablet 1 mg PO DAILY Qty: 30 0RF pantoprazole [Protonix] 40 mg tablet,delayed release (DR/EC) 40 mg PO QAM Qty: 30 0RF thiamine HCl (vitamin B1) [Vitamin B-1] 100 mg Tablet 100 mg PO DAILY Qty: 30 0RF Continued sertraline 50 mg tablet 50 mg PO DAILY Date of admission: 11/09/22 20:09 Primary Care Provider: PHYSICIAN NOT ON ST
== END 2022-11-11 12:15 | disposition home or self-care (01) ==
LOC: ANHED 20:09 → ANHICU 11-10 02:09
PROVIDERS: Emergency Medicine; Internal Medicine; Admitting Provider Internal Medicine; Emergency Provider Nurse Practitioner Family; Visit Provider Internal Medicine
DX: I48.91 Unspecified atrial fibrillation (principal); I48.92 Unspecified atrial flutter; F10.139 Alcohol abuse with withdrawal, unspecified; R00.0 Tachycardia, unspecified; R00.2 Palpitations; R42 Dizziness and giddiness; Z20.822 Contact with and (suspected) exposure to COVID-19; F32.A Depression, unspecified
CPT/HCPCS: 36415; 71046; 80048; 80053; 82948; 83690; 84443; 84484; 85025; 85610; 85730; 87637; 93005; 93306; 96366; 96367; 96372; 96374; 96375; 96376; 99285; A9270; C9113; G0378; J0282; J1650; J2060; J2405; J3411; J7030

== ENCOUNTER 2025-11-05 14:05 | Emergency (ER) | payer OTHER, SELFPAY ==
[2025-11-05 14:18] VITALS: BP 172/109; PULSE 111; RESP 16; TEMP 36; O2SAT 100
--- NOTE | 2025-11-05 14:25 | ED.WOUNDLAC ---
HPI - Wound/Laceration General Chief Complaint: Wound/Laceration Stated Complaint: Cut Finger patient presents to the [facility] with complaints of injury to right thumb while cooking today. Patient reports he was using his mandolin slicer and accidentally cut himself. Unsure of when his last tetanus vaccination was. Denies numbness or tingling in hands or fingers. Related Data Allergies Allergy/AdvReac Type Severity Reaction Status Date / Time diclofenac AdvReac Rash Verified 11/05/25 14:16 Review of Systems Constitutional: Constitutional: Reports as per HPI, Denies chills, Denies fatigue, Denies fever(s) and Denies weakness Eyes: Eyes: Reports no additional eye complaints ENT: Reports system reviewed and no additional complaints, except as documented Cardiovascular: Cardiovascular: Reports no additional cardiovascular complaints Respiratory: Respiratory: Reports no additional respiratory complaints Gastrointestinal: Gastrointestinal: Reports no additional gastrointestinal complaints Genitourinary: Genitourinary: Reports no additional male genitourinary complaints Musculoskeletal: Musculoskeletal: Reports as per HPI, Denies arthralgias and Denies joint swelling Integumentary/Breasts: Skin/Breast: Reports as per HPI, Denies erythema, Denies rash and Denies skin ulcer Comments: Injury to right thumb on mandolin slicer Neurologic: Reports as per HPI, Denies numbness and Denies weakness Psychiatric: Psychiatric: Reports no additional psychiatric complaints Endocrine: Endocrine: Reports no additional endocrine complaints Hematologic/Lymphatic: Hematologic/Lymphatic: Reports no additional hematologic/lymphatic complaints Allergic/Immunologic: Allergic/Immunologic: Reports no additional allergic/immunologic complaints PMFSH Family History Family History Father Cerebrovascular accident Mother Thyroid cancer Social History Social History Smoking status: Never smoker Alcohol intake: current Drinks per week: 21 Substance use type: does not use Lack of Transportation: No Lack of Food: Never True Current Housing: I Have Housing Concerned About Future Housing: No Difficulty Paying Gas/Electric Bills: No Difficulty Paying for Meds: No Currently Unemployed: No Education: Master's Degree or Higher Difficulty w/ Childcare or Family Care: No Spiritual care concerns: No Exam Const: General: healthy appearing and no acute distress Nutritional Appearance: well nourished Orientation/consciousness: patient oriented x3 Limitations: no limitations Resp: Effort & Inspection: normal respiratory effort Auscultation: clear to auscultation bilaterally Cardio: Rate: regular rate Rhythm: regular rhythm Skin: General skin exam: normal color Rashes: no rashes Wounds: wounds noted Other: 2 cm avulsion noted to right distal 1st digit. Mild bleeding noted. Neuro: General: patient oriented x3 Cranial nerves: Yes Nystagmus not present Speech: normal speech Gait exam (Neuro): Normal gait present Psych: Mental Status: mental status grossly normal Affect: normal affect Attitude: cooperative Course Course Level of Care: Express Care Visit Vital Signs Vital signs: Vital Signs Temperature 96.8 F L 11/05/25 14:18 Pulse Rate 111 H 11/05/25 14:18 Respiratory Rate 16 11/05/25 14:18 Blood Pressure 172/109 H 11/05/25 14:18 Pulse Oximetry 100 11/05/25 14:18 Temperature 96.8 F L 11/05/25 14:18 Pulse Rate 111 H 11/05/25 14:18 Respiratory Rate 16 11/05/25 14:18 Blood Pressure 172/109 H 11/05/25 14:18 Pulse Oximetry 100 11/05/25 14:18 Procedures Laceration Laceration 1: Date: 11/05/25 Time: 14:20 Site: hand Side (If applicable): right Size (cm): 2 Description: linear Pre-repair: wound explored and irrigated ====== Skin Level ====== Skin layer closed with: other (Surgicel ) ====== Subcutaneous Layer ====== ====== Muscle Layer ====== ====== Tendon Layer ====== Dressing: pressure dressing with non adherent and coban. MDM MDM Narrative Medical decision making narrative: wound closed/bleeding stopped with Surgicel. The patient was evaluated by myself in the express care. History is obtained from patient who is an independent historian and physical exam was performed. Available medical records were reviewed at this time. Exam findings show no acute concerns or changes; patient is non-toxic appearing and is in no distress. Patient is appropriate for outpatient treatment and follow-up. I have evaluated and discussed social determinants of health with the patient that could potentially impact subsequent diagnosis and treatment plans. Differential diagnosis and treatment plan were discussed with the patient. Patient agrees with discussion and after shared medical decision making agrees with plan of care. All questions were answered to the patient's satisfaction. Differential Diagnosis Differential Diagnosis: Laceration, avulsion, injury Medical Records I have reviewed the following patient records and this information was taken into consideration when formulating the assessment and plan.: previous labs, previous ER visits, previous hospitalizations and previous clinic visits Discharge Plan Discharge Clinical Impression: Open wound of right thumb without complication Patient Disposition: Home Condition: Stable Instructions: Antibiotic Form, Skin Avulsion (ED) Additional Instructions: we have got your wound to stop bleeding using Surgicel which is a type of bandage that clots the wound. Leave this on for 36 hours. Soak in warm water to remove this bandage until it comes off easily. Do not pull or this can cause more bleeding after removing this bandage used gentle wound care daily with warm water and gentle soap. do not use alcohol or peroxide then may apply Vaseline or Aquaphor to the area and cover with a bandage watch for signs and symptoms of infection including redness, colored drainage, increased pain, or swelling to the area. Follow-up with primary care in 1 week if symptoms not improving return to the urgent care more urgency room if you remove this bandage and bleeding continues. Patient Language: Emirati Prescriptions: No Action metoprolol succinate [Toprol XL] 25 mg tablet extended release 24 hr 25 mg PO DAILY Qty: 30 0RF Follow-up/Referrals: PHYSICIAN,RN OUTPATIENT SURGERY [Primary Care Provider, Internal Medicine] Time of Disposition: 14:43
[2025-11-05] MEDS: TETANUS,DIPHTHERIA,AC PERTUSSIS ADULT (0.5 ML) BOOSTRIX IM (14:33)
[2025-11-05] MEDS: CELLULOSE OXIDIZED 2 x 14 INCH 1 PKT XX (14:38)
[2025-11-05 15:23] VITALS: BP 162/109
== END 2025-11-05 15:23 | disposition home or self-care (01) ==
PROVIDERS: Emergency Provider Nurse Practitioner Family
DX: S61.001A Unspecified open wound of right thumb without damage to nail, initial encounter (principal); W27.4XXA Contact with kitchen utensil, initial encounter; Z23 Encounter for immunization
CPT/HCPCS: 90471; 90715; 99212; G0463